=== PATIENT | male | born 1990 | race Caucasian/White ===

== ENCOUNTER 2017-01-22 16:34 | Day surgery (SDC) | payer BC ==
[2017-01-22] MEDS ORDERED: Piperacillin/Tazobactam 3.375 GM in Sodium Chloride 0.9% 50 ML IV ONE (17:14)
[2017-01-22] MEDS ORDERED: Propofol 200 MG/20 ML SDV ONE (17:21)
[2017-01-22] MEDS ORDERED: Ondansetron 4 MG/2 ML SDV ONE (17:21)
[2017-01-22] MEDS ORDERED: Succinylcholine/Normal Saline 200 MG/10 ML Syringe ONE (17:21)
[2017-01-22] MEDS ORDERED: Dexamethasone 4 MG/ML 5 ML MDV ONE (17:21)
[2017-01-22] MEDS ORDERED: Midazolam 1 MG/ML 2 ML SDV ONE (17:21)
[2017-01-22] MEDS ORDERED: fentaNYL 250 MCG/5 ML SDV ONE (17:21)
[2017-01-22] MEDS ORDERED: Neostigmine Methylsulfate 1 MG/ML 5 ML Syringe ONE (17:22)
[2017-01-22] MEDS ORDERED: Lidocaine 2% 5 ML SDV ONE (17:22)
[2017-01-22] MEDS ORDERED: Bupivacaine 0.5% 30 ML SDV ONE (17:25)
[2017-01-22] MEDS: Lactated Ringers 1,000 ML IV SCH ×2 (17:33→21:24)
[2017-01-22] MEDS ORDERED: ePHEDrine 50 MG/ML SDV ONE (18:12)
--- NOTE | 2017-01-22 18:15 | PCM.PREANE ---
Preanesthetic Assessment - Procedure Proposed Procedure: laparoscopic appendectomy - Anesthesia/Transfusion/Family Hx Anesthesia History: No Prior Anesthesia Family History of Anesthesia Reaction: No - Review of Systems Other: Reports: None - Physical Assessment NPO Status Date: 01/22/17 NPO Status Time: 11:00 O2 Sat by Pulse Oximetry: 99 Respiratory Rate: 20 Vital Signs: Last Vital Signs Temp 36.0 C 01/22/17 17:54 Pulse 80 01/22/17 17:54 Resp 20 01/22/17 17:54 BP 146/69 H 01/22/17 17:54 Pulse Ox 99 01/22/17 17:54 Height: 5 ft 10 in Weight: 73.2 kg ASA Class: 1E Mental Status: Alert & Oriented x3 Airway Class: Mallampati = 1 Dentition: Reports: Normal Dentition Thyro-Mental Finger Breadths: 3 Mouth Opening Finger Breadths: 3 ROM/Head Extension: Full - Allergies Allergies/Adverse Reactions: Allergies Allergy/AdvReac Type Severity Reaction Status Date / Time No Known Allergies Allergy Verified 01/22/17 16:56 - Blood Blood Available: No - Acknowledgements Anesthesia Type Planned: General Anesthesia Pt an Appropriate Candidate for the Planned Anesthesia: Yes Alternatives and Risks of Anesthesia Discussed w Pt/Guardian: Yes Pt/Guardian Understands and Agrees with Anesthesia Plan: Yes PreAnesthesia Questionnaire - Past Health History Medical/Surgical History: Denies Medical/Surgical History - SUBSTANCE USE Smoking Status *Q: Never Smoker Recreational Drug Use History: No - HOME MEDS Home Medications: Home Meds . [No Known Home Meds] 01/22/17 [History] - CURRENT (IN HOUSE) MEDS Current Meds: Current Medications Lactated Ringer's (Ringers, Lactated) 1,000 mls @ 125 mls/hr IV ASDIRECTED ON LICENSE OF [facility] Last Admin: 01/22/17 17:33 Dose: 125 mls/hr Discontinued Medications Bupivacaine HCl (Marcaine 0.5%) Confirm Administered Dose 30 ml .ROUTE .STK-MED ONE Stop: 01/22/17 17:26 Dexamethasone (Dexamethasone) Confirm Administered Dose 20 mg .ROUTE .STK-MED ONE Stop: 01/22/17 17:22 Fentanyl (Sublimaze) Confirm Administered Dose 250 mcg .ROUTE .STK-MED ONE Stop: 01/22/17 17:22 Glycopyrrolate () Confirm Administered Dose 1 mg .ROUTE .STK-MED ONE Stop: 01/22/17 17:23 Piperacillin Sod/Tazobactam (Sod 3.375 gm/ Sodium Chloride) 50 mls @ 100 mls/ hr IV ONETIME ONE Stop: 01/22/17 17:43 Last Admin: 01/22/17 17:29 Dose: 100 mls/hr Lidocaine (Xylocaine-Mpf 2%) Confirm Administered Dose 5 ml .ROUTE .STK-MED ONE Stop: 01/22/17 17:23 Midazolam HCl (Versed 1 Mg/Ml) Confirm Administered Dose 2 mg .ROUTE .STK-MED ONE Stop: 01/22/17 17:22 Neostigmine Methylsulfate (Neostigmine) Confirm Administered Dose 5 mg .ROUTE .STK-MED ONE Stop: 01/22/17 17:23 Ondansetron HCl (Zofran) Confirm Administered Dose 4 mg .ROUTE .STK-MED ONE Stop: 01/22/17 17:22 Propofol (Diprivan 20 Ml) Confirm Administered Dose 200 mg .ROUTE .STK-MED ONE Stop: 01/22/17 17:22 Rocuronium [place] (Zemuron) Confirm Administered Dose 50 mg .ROUTE .STK-MED ONE Stop: 01/22/17 17:22 Succinylcholine Chloride (Succinylcholine In Ns Pf) Confirm Administered Dose 200 mg .ROUTE .STK-MED ONE Stop: 01/22/17 17:22
[2017-01-22] MEDS ORDERED: Ketorolac 30 MG/ML SDV ONE (18:48)
[2017-01-22] MEDS ORDERED: HYDROmorphone 1 MG/ML Syringe IVPUSH PRN (19:12)
--- NOTE | 2017-01-22 19:12 | PCM.OPNOTE ---
- General Post-Op/Procedure Note Date of Surgery/Procedure: 01/22/17 Operative Procedure(s): laparoscopic appendectomy Findings: inflamed appendix. no perforation. Pre Op Diagnosis: appendicitis Post-Op Diagnosis: same Anesthesia Technique: General ET Tube Primary Surgeon: Jillian Trevizo Pathology: appendix Fluid Replacement, Intraop: 1,100 Output, Urine Amount: 150 EBL in mLs: 25 Condition: Fair Free Text/Narrative:: Intake & Output 01/22/17 01/22/17 01/22/17 06:59 14:59 22:59 Output Total 150 Balance -150
[2017-01-22] MEDS ORDERED: Ondansetron 4 MG/2 ML SDV IVPUSH PRN (19:14)
--- NOTE | 2017-01-22 19:24 | PCM.POSTAN ---
POST ANESTHESIA ASSESSMENT - MENTAL STATUS Mental Status: alert, oriented - RESPIRATORY Respiratory Status: respiratory rate WNL, airway patent, O2 saturation stable - CARDIOVASCULAR CV Status: pulse rate WNL, blood pressure stable - GASTROINTESTINAL GI Status: no symptoms - PAIN Pain Score: 4 - POST OP HYDRATION Hydration Status: adequate & stable
[2017-01-22] MEDS ORDERED: fentaNYL 100 MCG/2 ML SDV ONE (19:35)
[2017-01-22] MEDS: fentaNYL 100 MCG/2 ML SDV IVPUSH PRN ×2 (19:36→19:42)
--- NOTE | 2017-01-22 20:29 | PCM48HPAN ---
Post Anesthesia Note - EVALUATION WITHIN 48HRS OF ANESTHETIC Vital Signs in Normal Range: Yes Patient Participated in Evaluation: Yes Respiratory Function Stable: Yes Airway Patent: Yes Cardiovascular Function Stable: Yes Hydration Status Stable: Yes Pain Control Satisfactory: Yes Nausea and Vomiting Control Satisfactory: Yes Mental Status Recovered: Yes
[2017-01-22] MEDS: Acetaminophen/oxyCODONE 325-5 MG Tab PO PRN (21:23)
--- NOTE | 2017-01-23 00:24 | HP ---
DATE OF : 1990 PRIMARY CARE PHYSICIAN: None PCP CHIEF COMPLAINT: Right lower quadrant pain. HISTORY OF PRESENT ILLNESS: The patient is a 26-year-old, otherwise healthy male who presents with a one-day history of abdominal pain. The pain started around the patient's umbilicus and was generalized. Over the last 24 hours, it has migrated to the right lower quadrant where it has become sharp and intense. The patient denies any fevers, chills, nausea, vomiting, or change in bowel or bladder habits. The pain was severe and he presented to clinic for workup. In clinic, he had a CBC, BMP, lipase, amylase, and CRP drawn. The CRP was mildly elevated. He had a plain films performed of the abdomen that were normal. CT of the abdomen and pelvis showed a dilated appendix with periappendiceal stranding consistent with acute appendicitis. The patient was transferred to the emergency room for further cares. PAST MEDICAL HISTORY: Denied. PAST SURGICAL HISTORY: Denied. SOCIAL HISTORY: Denies tobacco use, rare alcohol use, and no drug use. FAMILY HISTORY: Noncontributory. ALLERGIES: No known drug allergies. PHYSICAL EXAMINATION: VITAL SIGNS: Temperature 36.6 degree Celsius, pulse 77, blood pressure 137/73, respiratory rate 18, and O2 sats 99. GENERAL: The patient appears normal in no acute distress. HEENT: Eyes: Pupils equal, round, and reactive to light and accommodation. Nose: Normal externally. Nares patent. Mouth: Normal. Mucous membranes moist. HEART: Regular rate and rhythm. No murmurs. RESPIRATIONS: Clear to auscultation bilaterally. ABDOMEN: Flat, soft, tender along the right flank and right lower quadrant to palpation with involuntary guarding. EXTREMITIES: Warm and well perfused. LABORATORY DATA: CBC, CMP, lipase and amylase were normal. CRP 2.5. CT abdomen and pelvis acute appendicitis. ASSESSMENT: Acute appendicitis. PLAN: I explained the pathophysiology of appendicitis to the patient. I explained that the standard of treatment is to perform an appendectomy. We discussed both the open and laparoscopic method. I will attempt it laparoscopically, but should I be unable to perform it safely, I will convert to open. The patient I discussed the expected perioperative course as well as the risks of the procedure including bleeding, infection, or damage to surrounding structures. The patient verbalized understanding and wishes to proceed. The patient was kept n.p.o., given IV fluids, and started on IV Zosyn. LYNDA / AWAIS /[id number]
--- NOTE | 2017-01-23 00:39 | OR ---
SURGEON: NAY LUNDY MD DATE OF PROCEDURE: 01/22/2017 PREOPERATIVE DIAGNOSIS: Acute appendicitis. POSTOPERATIVE DIAGNOSIS: Acute appendicitis. PROCEDURE PERFORMED: Laparoscopic appendectomy. ANESTHESIA: General endotracheal anesthesia. FLUIDS: 1100 mL crystalloid. URINE OUTPUT: 150 mL. ESTIMATED BLOOD LOSS: 25 mL. FINDINGS: Acutely inflamed but not perforated appendix. COMPLICATIONS: None. INDICATIONS: The patient is a 26-year-old male with a one-day history of right lower quadrant pain. CT of the abdomen and pelvis showed acute appendicitis. I explained to the patient that the treatment for appendicitis is surgery. We discussed the open and laparoscopic procedure. I told him that should I be unable to perform this safely laparoscopically, I would convert to open. The patient and I discussed the risks, including bleeding, infection, or damage to surrounding structures. The patient verbalized understanding and wished to proceed. PROCEDURE IN DETAIL: The patient was brought to the operating room and placed on the OR table in supine position. A time-out was completed verifying the patient's name, age, date of , allergies, and procedure to be performed. General endotracheal anesthesia was induced. The left arm was tucked to the patient's side and a Chinchilla catheter placed. The abdomen was prepped and draped in the usual standard fashion. I anesthetized my trocar sites with 0.5% Marcaine plain prior to trocar placement. My initial trocar was placed in the left upper quadrant underneath the left subcostal margin along the midclavicular line. I gained access via a 5 mm optical trocar. All layers of the abdominal wall were visualized on my way in. Once entering the abdomen, I hooked up insufflation. The abdomen was insufflated to a pressure of 13 mmHg. A 5 mm 30-degree scope was inserted into the abdomen and I inspected the area underneath my trocar. No damage was noted to any underlying structures. A 5 mm trocar was placed under direct visualization in the left abdomen just lateral to the umbilicus. A 12 mm trocar was placed in the left lower quadrant under direct visualization. A small arterial bleeder was encountered prior to placing the trocar. The bleeding from this was controlled with an interrupted 3-0 Vicryl suture. Once all the trocars were placed, I put the patient into Trendelenburg position and airplaned him slightly to the left. Attention was turned to the right lower quadrant and an enlarged and inflamed appendix was immediately noted. This was grasped and elevated. There was no evidence of perforation. A window was made between the appendiceal mesentery and the base of the appendix. An articulating endoscopic stapler was placed in the abdomen containing a 45 mm blue load hesham. I stapled across and transected the base of the appendix. A Harmonic scalpel was then used to take down the appendiceal mesentery along the appendix from proximal to distal. The appendix was then placed in an endoscopic bag and removed from the abdomen via the 12 mm port site. The 12 mm port was then reinserted into the abdomen and I reinspected my surgical site. No bleeding was noted, and I irrigated around the right lower quadrant with normal saline until it ran clear. The 12 mm port site was then closed with an 0 Vicryl suture using a Madan-Aparna needle. This adequately closed the fascia. The remainder of the trocars were removed under direct visualization. The abdomen was allowed to desufflate. I closed the 12 mm port site in the left lower quadrant with interrupted 3-0 Vicryl sutures in the subcutaneous space and closed the skin with interrupted 4-0 Monocryl. The skin at the 5 mm trocar sites was closed with interrupted 4-0 Monocryl as well. Steri-Strips and sterile dressings were applied. All counts were complete and correct at the end of the case. The patient tolerated the procedure well and was taken to PACU in stable condition. LYNDA ERNANDEZ /[id number]
[2017-01-23] MEDS: Acetaminophen/oxyCODONE 325-5 MG Tab PO PRN ×4 (02:10→15:57)
[2017-01-23] MEDS: Lactated Ringers 1,000 ML IV SCH (05:36)
[2017-01-23] MEDS ORDERED: Polyethylene Glycol 3350 Powder 17 GM Packet PO ONE (09:07)
--- NOTE | 2017-01-23 09:07 | PCM.SURGPN ---
- General Info Date of Service: 01/23/17 Date of Surgery/Procedure: 01/22/17 POD#: 1 Post-Op Diagnosis: Acute appendicitis Functional Status: Reports: pain controlled, tolerating diet, ambulating, urinating - Review of Systems General: Reports: No Symptoms Pulmonary: Reports: no symptoms Cardiovascular: Reports: No Symptoms Gastrointestinal: Reports: Abdominal pain (along incisions) Genitourinary: Reports: no symptoms - Patient Data Vitals - most recent: Last Vital Signs Temp 36.9 C 01/23/17 04:00 Pulse 60 01/23/17 04:00 Resp 16 01/23/17 04:00 BP 102/54 L 01/23/17 04:00 Pulse Ox 96 01/23/17 04:00 Weight - most recent: 73.2 kg I&O - last 24 hours: Intake & Output 01/22/17 01/23/17 01/23/17 22:59 06:59 14:59 Intake Total 3750 1840 Output Total 300 800 Balance 3450 1040 Med Orders - Current: Current Medications Hydromorphone HCl (Dilaudid) 0.5 mg IVPUSH Q2H PRN PRN Reason: Abdominal Pain Last Admin: 01/22/17 22:41 Dose: 0.5 mg Lactated Ringer's (Ringers, Lactated) 1,000 mls @ 125 mls/hr IV ASDIRECTED HECT[facility] Last Admin: 01/23/17 05:36 Dose: 125 mls/hr Ondansetron HCl (Zofran) 4 mg IVPUSH Q6H PRN PRN Reason: Nausea/Vomiting Oxycodone/Acetaminophen (Percocet 325-5 Mg) 2 tab PO Q4HR PRN PRN Reason: Abdominal Pain Last Admin: 01/23/17 07:38 Dose: 2 tab Discontinued Medications Bupivacaine HCl (Marcaine 0.5%) Confirm Administered Dose 30 ml .ROUTE .STK-MED ONE Stop: 01/22/17 17:26 Dexamethasone (Dexamethasone) Confirm Administered Dose 20 mg .ROUTE .STK-MED ONE Stop: 01/22/17 17:22 Ephedrine Sulfate (Ephedrine Sulfate) Confirm Administered Dose 50 mg .ROUTE .STK-MED ONE Stop: 01/22/17 18:13 Fentanyl (Sublimaze) Confirm Administered Dose 250 mcg .ROUTE .STK-MED ONE Stop: 01/22/17 17:22 Fentanyl (Sublimaze) 50 mcg IVPUSH SEECOMMENT PRN PRN Reason: Pain (moderate 4-6) Last Admin: 01/22/17 19:42 Dose: 50 mcg Fentanyl (Sublimaze) Confirm Administered Dose 100 mcg .ROUTE .STK-MED ONE Stop: 01/22/17 19:36 Last Admin: 01/22/17 21:36 Dose: Not Given Glycopyrrolate () Confirm Administered Dose 1 mg .ROUTE .STK-MED ONE Stop: 01/22/17 17:23 Piperacillin Sod/Tazobactam (Sod 3.375 gm/ Sodium Chloride) 50 mls @ 100 mls/ hr IV ONETIME ONE Stop: 01/22/17 17:43 Last Admin: 01/22/17 17:29 Dose: 100 mls/hr Ketorolac Tromethamine (Toradol) Confirm Administered Dose 30 mg .ROUTE .STK- MED ONE Stop: 01/22/17 18:49 Lidocaine (Xylocaine-Mpf 2%) Confirm Administered Dose 5 ml .ROUTE .STK-MED ONE Stop: 01/22/17 17:23 Midazolam HCl (Versed 1 Mg/Ml) Confirm Administered Dose 2 mg .ROUTE .STK-MED ONE Stop: 01/22/17 17:22 Neostigmine Methylsulfate (Neostigmine) Confirm Administered Dose 5 mg .ROUTE .STK-MED ONE Stop: 01/22/17 17:23 Ondansetron HCl (Zofran) Confirm Administered Dose 4 mg .ROUTE .STK-MED ONE Stop: 01/22/17 17:22 Propofol (Diprivan 20 Ml) Confirm Administered Dose 200 mg .ROUTE .STK-MED ONE Stop: 01/22/17 17:22 Rocuronium [place] (Zemuron) Confirm Administered Dose 50 mg .ROUTE .STK-MED ONE Stop: 01/22/17 17:22 Succinylcholine Chloride (Succinylcholine In Ns Pf) Confirm Administered Dose 200 mg .ROUTE .STK-MED ONE Stop: 01/22/17 17:22 - Exam Wound/Incisions: dressing dry and intact, drainage (minimal drainage on dressings ) General: alert, oriented, mild distress HEENT: Pupils equal, Pupils reactive, Mucous membr. moist/pink Lungs: Normal respiratory effort Cardiovascular: Regular Rate GI/Abdominal Exam: Soft, No Distention, Tender (tender along incisions especially the left lower incision ) Extremities: Normal Inspection Skin: warm, dry, intact Psy/Mental Status: alert, normal affect, normal mood - Problem List & Annotations (1) Appendicitis SNOMED Code(s): 91325317 Code(s): K37 - UNSPECIFIED APPENDICITIS Status: Acute Current Visit: Yes - Problem List Review Problem List Initiated/Reviewed/Updated: Yes - My Orders Last 24 Hours: Active Orders 24 hr Category Date Time Status Patient Status [ADT] Routine ADT 01/22/17 17:13 Active Intake and Output [RC] Q12H Care 01/22/17 17:13 Active Oxygen Therapy [RC] PRN Care 01/22/17 17:13 Active RT Incentive Spirometry [RC] ASDIRECTED Care 01/22/17 17:13 Active Ready for Discharge [RC] PER UNIT ROUTINE Care 01/23/17 07:46 Active Up ad Rashmi [RC] ASDIRECTED Care 01/22/17 17:13 Active Vital Signs [RC] PER UNIT ROUTINE Care 01/22/17 17:13 Active Acetaminophen/oxyCODONE [Percocet 325-5 MG] Med 01/22/17 19:12 Active 2 tab PO Q4HR PRN HYDROmorphone [Dilaudid] Med 01/22/17 19:12 Active 0.5 mg IVPUSH Q2H PRN Lactated Ringers [Ringers, Lactated] 1,000 ml Med 01/22/17 17:15 Active IV ASDIRECTED Ondansetron [Zofran] Med 01/22/17 19:14 Active 4 mg IVPUSH Q6H PRN Resuscitation Status Routine Resus Stat 01/22/17 17:13 Ordered Medication Orders Hydromorphone HCl (Dilaudid) 0.5 mg IVPUSH Q2H PRN PRN Reason: Abdominal Pain Last Admin: 01/22/17 22:41 Dose: 0.5 mg Lactated Ringer's (Ringers, Lactated) 1,000 mls @ 125 mls/hr IV ASDIRECTED [facility] Last Admin: 01/23/17 05:36 Dose: 125 mls/hr Infusion: 01/23/17 05:24 Dose: 125 mls/hr Admin: 01/22/17 21:24 Dose: 125 mls/hr Infusion: 01/22/17 21:24 Dose: 125 mls/hr Admin: 01/22/17 17:33 Dose: 125 mls/hr Ondansetron HCl (Zofran) 4 mg IVPUSH Q6H PRN PRN Reason: Nausea/Vomiting Oxycodone/Acetaminophen (Percocet 325-5 Mg) 2 tab PO Q4HR PRN PRN Reason: Abdominal Pain Last Admin: 01/23/17 07:38 Dose: 2 tab Admin: 01/23/17 02:10 Dose: 2 tab Admin: 01/22/17 21:23 Dose: 2 tab - Assessment Assessment (Free Text/Narrative):: Acute appendicitis, non-perforated - Plan Plan (Free Text/Narrative):: I explained to the patient that it is expected to have tenderness along his incisions and with movement. We discussed having reasonable expectations for pain control. He had just recieved percocet when I saw him. Will have the patient get up this morning and walk around the unit since he has not been out of the room since surgery. We talked about caring for his wounds. His vitals are stable, he is urinating, and tolerating a diet. I will check on him at noon and if his pain is controlled he can be discharged with follow up in my clinic in two weeks.
[2017-01-23] MEDS ORDERED: Cyclobenzaprine 5 MG Tab PO PRN (11:48)
[2017-01-23 16:13] VITALS: BP 120/56
== END 2017-01-23 18:25 | disposition home or self-care (01) ==
LOC: MW.ED 16:34 → MW.SDS 17:13 → MW.MS 18:30 → MW.SDS 01-23 18:25
PROVIDERS: ATTEND Surgery
PROC: 0DTJ4ZZ Resection of Appendix, Percutaneous Endoscopic Approach (ICD-10-PCS; principal; 2017-01-22)
DX: K35.80 Unspecified acute appendicitis (principal); K36 Other appendicitis; K37 Unspecified appendicitis
CPT/HCPCS: 36415; 44970; 74020; 74177; 80053; 81001; 82150; 82247; 82248; 83690; 85027; 86140; 88304; 96365; 99284; A9270; J1100; J1170; J1885; J2250; J2405; J2543; J3010; J7050; J7120; Q9967; 00840; J2704